=== PATIENT | male | born 1975 | race Caucasian/White ===

== ENCOUNTER 2018-09-19 13:43 | Emergency (ER) | payer SELFPAY ==
[~2018-09-19] VITALS: Ht 170.2 cm; Wt 97.5 kg
[2018-09-19 13:50] VITALS: BP_SYST 130
[2018-09-19] MEDS ORDERED: ONDANSETRON 4 MG ODT TAB PO ONE (15:15)
[2018-09-19] MEDS ORDERED: MECLIZINE HCL 25 MG TABLET (ANITVERT) PO ONE (15:15)
[2018-09-19 16:15] VITALS: BP_SYST 146
== END 2018-09-19 16:15 | disposition home or self-care (01) ==
LOC: SED 13:43
DX: R42 Dizziness and giddiness (principal); R11.2 Nausea with vomiting, unspecified; J45.909 Unspecified asthma, uncomplicated; R03.0 Elevated blood-pressure reading, without diagnosis of hypertension
CPT/HCPCS: 82962; 99284; J8597; Q0162